=== PATIENT | male | born 1975 | race Two or more races ===

== ENCOUNTER 2016-09-07 13:09 | Emergency (ER) | payer OTHER ==
[2016-09-07 14:02] LABS: BASOPHIL % 0.5 % (0-2); PLATELET COUNT 327 x10^3mcL (130-400)
[2016-09-07 14:17] LABS: CALCIUM 8.8 mg/dL (8.5-10.1); CARBON DIOXIDE 26.7 mmol/L (21-32); CHLORIDE SERUM 104 mmol/L (98-107); CREATININE SERUM 0.9 mg/dL (0.7-1.3); GFR1 > 60 mL/min; GLUCOSE SERUM 129 mg/dL (74-106); POTASSIUM SERUM 3.3 mmol/L (3.5-5.1); SODIUM SERUM 136 mmol/L (136-145)
[2016-09-07 14:21] LABS: ALKALINE PHOSPHATASE 116 U/L (46-116); ALT/SGPT 33 U/L (16-63); AST/SGOT 19 U/L (15-37); BILIRUBIN TOTAL 0.39 mg/dL (0.20-1.00); TOTAL PROTEIN, SERUM 7.5 g/dL (6.4-8.2)
[2016-09-07 17:46] LABS: AMPHETAMINE QUAL UR NONE DETECTED (NEG <=1000)
[2016-09-07 17:54] VITALS: BP 149/87
[2016-09-07 18:54] LABS: microscopic required? YES; urine erythrocyte 1+ (NEGATIVE)
[2016-09-07 19:03] LABS: CHOLESTEROL/HDL RATIO 3.7
[2016-09-07 19:10] LABS: T3 TOTAL 1.3 ng/mL
[2016-09-07 19:11] LABS: FREE T4 1.05 ng/dL (0.76-1.46); FREE THYROXINE INDEX 2.9 ug/dL (1.4-4.5); T4(THYROXINE) 8.4 ug/dL (4.7-13.3)
== END 2016-09-07 17:54 | disposition left against medical advice (07) ==
LOC: ED 13:09 → DU 17:30
PROVIDERS: Emergency Medicine; Family Medicine
DX: R07.89 Other chest pain (principal); R41.82 Altered mental status, unspecified; E87.6 Hypokalemia; M54.9 Dorsalgia, unspecified
CPT/HCPCS: 80307; 82962; 83880; 84439; J3010; J3480; J7030; Q0092; Q9967